=== PATIENT | male | born 1980 | race Two or more races ===

== ENCOUNTER 2023-03-20 11:45 | Inpatient (IN) | payer OTHER, MEDICAID ==
[~2023-03-20] VITALS: Ht 160 cm; Wt 123.4 kg
[2023-03-20 12:15] VITALS: PULSE 77; RESP 18; O2SAT 94
[2023-03-20 13:30] LABS: Basophils # (auto) 0 10 ^3/uL (0-0.2); Basophils % (auto) 0.5 % (0.0-2.0); Eosinophils # (auto) 0.1 10 ^3/uL (0-0.8); Eosinophils % (auto) 1.8 % (0.0-7.0); Hematocrit 40.2 % (41.0-53.0); Hemoglobin 13.3 g/dL (13.5-17.5); Lymphocytes # (auto) 1.6 10 ^3/uL (0.4-5.4); Lymphocytes % (auto) 20.8 % (10.0-50.0); Mean Corpuscular Hemoglobin 29.9 pg (28.0-32.0); Mean Corpuscular Volume 90.4 fL (80.0-100.0); Monocytes # (auto) 0.6 10 ^3/uL (0-1.3); Monocytes % (auto) 7.7 % (0.0-12.0); Neutrophils # (auto) 5.3 10 ^3/uL (1.6-8.6); Neutrophils % (auto) 69.2 % (37.0-80.0); Nucleated Red Blood Cells % 0.2 %; Red Blood Cells 4.45 10^6/uL (4.5-5.90); Red Cell Distribution Width 13.7 % (11.8-14.3); White Blood Cell 7.6 10^3/uL (4.4-10.8)
[2023-03-20 13:40] LABS: Alanine Aminotransferase 45 U/L (7-40); Albumin 4.2 g/dL (3.2-4.8); Alkaline Phosphatase 144 U/L (46-116); Anion Gap 10 (5-15); Aspartate Aminotransferase 51 U/L (13-40); BUN/Creatinine Ratio 20.5 (10.0-20.0); Bilirubin, Total 0.5 mg/dL (0.2-1.0); Blood Urea Nitrogen 15 mg/dL (9-23); Carbon Dioxide 24 mmol/L (20-30); Chloride 103 mmol/L (98-107); Glucose 98 mg/dL (74-106); Potassium 3.8 mmol/L (3.5-5.1); Sodium 137 mmol/L (136-145); Total Protein 6.6 g/dL (5.7-8.2)
[2023-03-20 13:42] LABS: INR 1.02 (0.9-1.15); Prothrombin Time 10.7 sec (9.3-11.8)
[2023-03-20] MEDS ORDERED: LACO200T3 PO (15:30)
[2023-03-20] MEDS ORDERED: levETIRAcetam 500 mg/100ml 100 ML IV SCH (15:30)
[2023-03-20] MEDS ORDERED: MORPHINE SULFATE INJ 2 MG/ml SYRG IV PRN (17:00)
[2023-03-20] MEDS ORDERED: NITROGLYCERIN 0.4 MG SL TAB SL PRN (17:00)
[2023-03-20] MEDS ORDERED: ACETAMINOPHEN 325 MG TAB PO PRN (17:00)
[2023-03-20] MEDS: SODIUM CHLORIDE 0.9% 1,000 ML IV SCH (17:30)
[2023-03-20] MEDS ORDERED: PHENYTOIN IV DILANTIN 1,000 MG in SODIUM CHL 0.9% 250 ML IV ONE (19:30)
[2023-03-20 20:06] VITALS: PULSE 80; RESP 15; O2SAT 94
[2023-03-20] MEDS: PHENYTOIN SODIUM 100 MG CAP PO SCH (22:00)
[2023-03-20 22:16] LABS: Urine Bacteria NONE SEEN /hpf (None Seen); Urine Blood Negative /uL (Negative); Urine Clarity Clear (Clear); Urine Color Colorless (Yellow); Urine Protein, UAD Negative (Negative); Urine Specific Gravity 1.004 (1.001-1.035); Urine Urobilinogen Normal (Negative); Urine WBC 1 /hpf (0 - 3); Urine pH 6.5 (5.0-8.0)
[2023-03-20 22:21] LABS: Amphetamine Screen, Urine Neg (NEGATIVE); Barbiturate Scree,Urine Neg (NEGATIVE); Benzodiazephine Screen, Urine Neg (NEGATIVE); Cocaine Screen, Urine Neg (NEGATIVE); Opiate Scree,Urine Neg (NEGATIVE)
[2023-03-20 22:22] LABS: Cannabinoid Screen, Urine Neg (NEGATIVE); Phencyclidine Screen, Urine Neg (NEGATIVE)
[2023-03-20] MEDS: levETIRAcetam 500 MG TAB PO SCH (22:45)
[2023-03-20] MEDS: LACOSAMIDE 50 MG TAB PO SCH (22:46)
[2023-03-21] VITALS (8 sets, daily range): BP systolic 95–122; BP diastolic 56–89; PULSE 68–90; RESP 17–20; TEMP 98.1–98.7; O2SAT 93–99
[2023-03-21] MEDS: LORazepam 2MG/ML-1ML VIAL IV PRN ×3 (00:52→12:12)
[2023-03-21] MEDS ORDERED: LEVE750T3 PO (03:30)
[2023-03-21] MEDS ORDERED: ATOR40TA52 PO (03:30)
[2023-03-21] MEDS ORDERED: ASPI-665 PO (03:30)
[2023-03-21] MEDS ORDERED: METF-370 PO (03:30)
[2023-03-21 08:14] LABS: Basophils # (auto) 0 10 ^3/uL (0-0.2); Basophils % (auto) 0.5 % (0.0-2.0); Eosinophils # (auto) 0.1 10 ^3/uL (0-0.8); Eosinophils % (auto) 1.9 % (0.0-7.0); Hematocrit 36.5 % (41.0-53.0); Hemoglobin 12.2 g/dL (13.5-17.5); Lymphocytes # (auto) 1.4 10 ^3/uL (0.4-5.4); Lymphocytes % (auto) 22.3 % (10.0-50.0); Mean Corpuscular Hemoglobin 29.7 pg (28.0-32.0); Mean Corpuscular Hgb Conc. 33.3 g/dL (32.0-36.0); Mean Corpuscular Volume 89.1 fL (80.0-100.0); Monocytes # (auto) 0.5 10 ^3/uL (0-1.3); Monocytes % (auto) 8.6 % (0.0-12.0); Neutrophils # (auto) 4.2 10 ^3/uL (1.6-8.6); Neutrophils % (auto) 66.7 % (37.0-80.0); Nucleated Red Blood Cells % 0.1 %; Red Cell Distribution Width 14.1 % (11.8-14.3); White Blood Cell 6.3 10^3/uL (4.4-10.8)
[2023-03-21 08:24] LABS: Alanine Aminotransferase 39 U/L (7-40); Albumin 3.9 g/dL (3.2-4.8); Alkaline Phosphatase 121 U/L (46-116); Aspartate Aminotransferase 49 U/L (13-40); BUN/Creatinine Ratio 9.6 (10.0-20.0); Bilirubin, Total 0.5 mg/dL (0.2-1.0); Blood Urea Nitrogen 7 mg/dL (9-23); Calcium 9.1 mg/dL (8.5-10.1); Chloride 105 mmol/L (98-107); Glucose 117 mg/dL (74-106); Potassium 3.9 mmol/L (3.5-5.1); Sodium 137 mmol/L (136-145); Total Protein 6.4 g/dL (5.7-8.2)
[2023-03-21 09:23] LABS: Anion Gap 5 (5-15); Carbon Dioxide 27 mmol/L (20-30)
[2023-03-21] MEDS: SODIUM CHLORIDE 0.9% 1,000 ML IV SCH (09:40)
[2023-03-21] MEDS: LACOSAMIDE 50 MG TAB PO SCH ×2 (09:53→22:03)
[2023-03-21] MEDS: levETIRAcetam 500 MG TAB PO SCH ×2 (09:53→22:01)
[2023-03-21] MEDS: ENOXAPARIN SOD 40 MG/0.4 ML SYRINGE SC SCH (09:54)
[2023-03-21] MEDS ORDERED: levETIRAcetam 1000 mg/100ml 100 ML IV SCH (10:00)
[2023-03-21] MEDS ORDERED: PHENYTOIN IV DILANTIN 400 MG in SODIUM CHL 0.9% 100 ML IV ONE (15:30)
[2023-03-21] MEDS: PHENYTOIN SODIUM 100 MG CAP PO SCH (22:00)
[2023-03-22] MEDS: LORazepam 2MG/ML-1ML VIAL IV PRN (04:25)
[2023-03-22] MEDS: SODIUM CHLORIDE 0.9% 1,000 ML IV SCH (04:40)
[2023-03-22 05:00] VITALS: BP 100/65; PULSE 67; RESP 18; TEMP 98.4; O2SAT 100
[2023-03-22 08:05] VITALS: BP 99/63; PULSE 69; RESP 20; TEMP 97.4
[2023-03-22 09:00] VITALS: BP 95/63; PULSE 69; RESP 20; TEMP 97.4; O2SAT 95
[2023-03-22] MEDS: LACOSAMIDE 50 MG TAB PO SCH (09:00)
[2023-03-22] MEDS: levETIRAcetam 500 MG TAB PO SCH (09:01)
[2023-03-22] MEDS: ENOXAPARIN SOD 40 MG/0.4 ML SYRINGE SC SCH (09:01)
[2023-03-22] MEDS ORDERED: LEVE500T40 PO (09:27)
[2023-03-22] MEDS ORDERED: LEVE100012 PO (09:27)
[2023-03-22] MEDS ORDERED: PHEN1CAP60 PO (09:27)
[2023-03-22 11:01] VITALS: BP 99/63; PULSE 69; RESP 20; TEMP 97.6; O2SAT 95
[2023-03-24 08:48] LABS: Hepatitis B Surface Antigen Negative (Negative)
[2023-03-24 09:09] LABS: Hepatitis A Ab IgM Negative; Hepatitis B Core IgM Negative; Hepatitis C Antibody Negative (Negative)
== END 2023-03-22 12:00 | disposition home or self-care (01) | DRG 101 ==
LOC: ER 11:45 → EDBD 11:45 → TELE 16:53 → TELE-CENTR 03-21 02:55
PROVIDERS: ADMIT Nurse Practitioner Family; ATTEND Family Medicine
DX: G40.401 Other generalized epilepsy and epileptic syndromes, not intractable, with status epilepticus (principal); R47.01 Aphasia; I69.351 Hemiplegia and hemiparesis following cerebral infarction affecting right dominant side; Z68.42 Body mass index [BMI] 45.0-49.9, adult; E66.01 Morbid (severe) obesity due to excess calories; E78.00 Pure hypercholesterolemia, unspecified; I69.398 Other sequelae of cerebral infarction; Z79.899 Other long term (current) drug therapy; Z83.3 Family history of diabetes mellitus; Z91.148 Patient's other noncompliance with medication regimen for other reason; R74.01 Elevation of levels of liver transaminase levels; Z71.3 Dietary counseling and surveillance
CPT/HCPCS: 36415; 70450; 71045; 76705; 80053; 80074; 80185; 80307; 81001; 82542; 84484; 85025; 85610; 92507; 92523; 93005; G0378